=== PATIENT | male | born 1980 | race Asian ===

== ENCOUNTER 2018-11-28 23:23 | Emergency (ER) | payer SELFPAY ==
[~2018-11-28] VITALS: Ht 167.6 cm; Wt 72.7 kg
[~2018-11-28 23:23] MED LIST: CEPH-443 PO; IBUP-1542 PO; NAPR-985 PO
[2018-11-28 23:34] VITALS: BP 139/76; PULSE 96; RESP 18; Ht 167.6 cm; Wt 72.7 kg
[2018-11-29] MEDS ORDERED: IBUPROFEN 800 MG TAB PO STA (00:13)
[2018-11-29] MEDS ORDERED: LIDOCAINE 2%/EPI (MDV) 20ML INJ INJ ONE (00:30)
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
== END 2018-11-29 02:45 | disposition home or self-care (01) ==
LOC: FTE 23:23
DX: S61.511A Laceration without foreign body of right wrist, initial encounter (principal); S61.512A Laceration without foreign body of left wrist, initial encounter; X99.1XXA Assault by knife, initial encounter
CPT/HCPCS: 85025

== ENCOUNTER 2018-12-02 07:22 | Emergency (ER) | payer SELFPAY ==
[~2018-12-02] VITALS: Ht 167.6 cm; Wt 74.4 kg
[2018-12-02 07:31] VITALS: BP 141/78; PULSE 94; RESP 18; Ht 167.6 cm; Wt 74.4 kg
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
== END 2018-12-02 08:38 | disposition home or self-care (01) ==
LOC: FTE 07:22
DX: Z48.01 Encounter for change or removal of surgical wound dressing (principal)
CPT/HCPCS: 99282